=== PATIENT | male | born 1935 | race Caucasian/White ===

== ENCOUNTER 2017-04-04 10:20 | Emergency (ER) | payer OTHER, MEDICARE ==
[~2017-04-04] VITALS: Ht 172.7 cm; Wt 64.4 kg
--- NOTE | 2017-04-04 10:38 | ED PSYCHIATRIC COMPLAINT ---
History of Present Illness General Chief Complaint: Psychiatric Related Complaint Stated Complaint: SIB DR PORTILLO ACUTE ANXIETY/DEPRESSION Source: patient, family Exam Limitations: no limitations Allergies Coded Allergies: Penicillins (UPSET STOMACH 04/04/17) aspirin (UPSET STOMACH 04/04/17) Triage Note: PT TO ED WITH FAMILY FOR INCREASE IN DEPRESSION AND ANXIETY. SENT TO ED BY DR PORTILLO. PT STATES HE IS ON ANXIETY MEDS BUT THEY ARE NOT HELPING. C/O INSOMNIA AND POOR PO INTAKE. DENIES SI/HI. CALM COOPERATIVE. HAS HAD 10LB WEIGHT LOSS IN 3 MONTHS. Triage Nurses Notes Reviewed? yes Onset: Gradual Duration: getting worse Timing: recent history Severity: severe Severity Numbers: 7 HPI: Patient is a 81-year-old male with a past medical history of hyperlipidemia anxiety depression hypothyroidism, AFIB WITH ABLATION, CHRONIC BACK PAIN, who presents emergency room with concerns of worsening anxiety and depression where he states in the past 3 weeks he is worried about everything has had poor by mouth intake 3 months of 10 pound weight loss and generalized weakness and fatigue patient also is complaining of racing thoughts Patient is never a smoker His primary care doctor treats his anxiety depression with citalopram percent administration of alprazolam prescription and trazodone with no relief of symptoms. Patient denies any suicidal or homicidal ideation denies any illness currently denies any fever chills shortness breath chest pain or jaw pain change in bowel habits no blood no melena no night sweats Denies any auditory or visual hallucinations patient resides with his was present during the history and physical son is also present (Lauri Boothe) Vital Signs & Intake/Output Vital Signs & Intake/Output Vital Signs Date Time Temp Pulse Resp B/P B/P Pulse O2 O2 Flow FiO2 Mean Ox Delivery Rate 04/04 1250 96.6 76 18 125/75 97 Room Air 04/04 1024 96.0 82 20 117/77 96 Room Air (Laura YEE,Olaf Evans) Past History Travel History Traveled to [place] past 21 day No Medical History Any Pertinent Medical History? see below for history Cardiovascular: hyperlipidemia Psychiatric: anxiety Endocrine: hypothyroidism Surgical History Surgical History: non-contributory Psychosocial History Tobacco Use: Current Daily Use Daily Tobacco Use Amount/Type: => 5 Cigarettes daily ETOH Use: denies use Illicit Drug Use: denies illicit drug use Family History Hx Contributory? No (Lauri Boothe) Review of Systems Review of Systems Constitutional: Reports: no symptoms. EENTM: Reports: no symptoms. Respiratory: Reports: no symptoms. Cardiovascular: Reports: no symptoms. GI: Reports: no symptoms. Genitourinary: Reports: no symptoms. Musculoskeletal: Reports: no symptoms. Skin: Reports: no symptoms. Neurological/Psychological: Reports: see HPI. Hematologic/Endocrine: Reports: no symptoms. Immunologic/Allergic: Reports: no symptoms. All Other Systems: Reviewed and Negative (Lauri Boothe) Physical Exam Physical Exam General Appearance: no apparent distress, alert, thin Head: atraumatic Eyes: Bilateral: normal appearance. Ears, Nose, Throat: normal pharynx, normal ENT inspection Neck: normal inspection Respiratory: normal breath sounds, chest non-tender, no respiratory distress Cardiovascular: regular rate/rhythm Gastrointestinal: normal bowel sounds, soft, non-tender Neurological/Psychiatric: no motor/sensory deficits, awake, calm Appearance/Memory/Insight: appropriate appearance, appropriate insight, denies illness Behavoir/Eye Contact/Speech: cooperative Thoughts/Hallucinations: normal thought pattern, no apparent hallucination Skin: intact, normal color, warm/dry Cleared? (statement below) Yes SAD PERSONS Done? patient not suicidal (Lauri Boothe) Progress Differential Diagnosis: drug intoxication, drug overdose, drug withdrawal, electrolyte abnormality, encephalitis, hypoglycemia, hypothyroidism, IC hem/mass /tumor, meningitis Plan of Care: Orders Procedure Date/time Status Heart Healthy Diet 04/04 D Active EKG 04/04 1121 Active URINE DRUG SCREEN FOR ER ONLY 04/04 1111 Complete THYROID STIMULATING HORMONE 04/04 1111 Complete FREE T4 04/04 1111 Complete ETHANOL 04/04 1111 Complete COMPREHENSIVE METABOLIC PANEL 04/04 1111 Complete CBC WITHOUT DIFFERENTIAL 04/04 1111 Complete ED CRISIS PSYCH CONSULT 04/04 1111 Active Laboratory Tests 04/04/17 1125: Anion Gap 13, Estimated GFR > 60, BUN/Creatinine Ratio 35.0 H, Glucose 102 H, Calcium 9.4, Total Bilirubin 0.3, AST 33, ALT 48, Alkaline Phosphatase 54, Total Protein 6.7, Albumin 4.3, Globulin 2.4, Albumin/Globulin Ratio 1.8, TSH 0.311, Free T4 1.32, CBC w Diff NO MAN DIFF REQ, RBC 4.31 L, MCV 90.9, MCH 30.2, RDW 13.3, MPV 7.1 L, Gran % 73.9, Lymphocytes % 19.0 L, Monocytes % 6.0, Eosinophils % 0.6, Basophils % 0.5, Absolute Granulocytes 5.0, Absolute Lymphocytes 1.3, Absolute Monocytes 0.4, Absolute Eosinophils 0, Absolute Basophils 0, PUBS MCHC 33.2, Serum Alcohol < 10.0 04/04/17 1120: Urine Opiates Screen < 100.00, Methadone Screen < 40, Barbiturate Screen < 60, Ur Phencyclidine Scrn < 6.00, Amphetamines Screen < 100, U Benzodiazepines Scrn 312 H, Urine Cocaine Screen < 50, Urine Cannabis Screen < 5.00 Patient on initial examination was resting comfortably at bedside denies any illness however due to patient's advanced age and comorbidities blood work and chest x-ray and EKG will be established Plan with patient is to medically clear him have a psychiatric consultation for most likely outpatient establishment The patient on his blood work and chest x-ray and EKG patient has been medically cleared and currently crisis is pending evaluation Crisis management evaluated the patient and indicates to me that patient will follow up with outpatient [facility] psychiatric provider discussed disposition plan with Dr. Sanchez and patient who agrees has no questions. Olaf Sanchez MD AND crisis management also had a long extensive conversation with patient and family members and which they were displeased with the fact that the follow-up appointment with establishment is not for 8 days well we discussed that there is no life-threatening emergent concern for patient's chronic symptoms he is not a threat to himself or others medically patient was cleared and which we strongly advised patient to follow-up with this appointment and to return to emergency room if symptoms worsen. Diagnostic Imaging: Viewed by Me: Radiology Read. CXR Impression: no acute abnormality, no infiltrates Initial ED EKG: normal p-waves, normal QRS complex, normal sinus rhythm, 69 BPM, NSR Comments: PATIENT: ESME HANSON PRESENT AGE: 81 PATIENT ACCOUNT NO: [id number] : 37 LOCATION: [facility] ORDERING PHYSICIAN: Lauri MCBRIDE SERVICE DATE: 04/04/17-1110 EXAM TYPE: RAD - XRY-CHEST XRAY, TWO VIEWS EXAMINATION: XR CHEST CLINICAL INFORMATION: 81-year-old male patient with weight loss. Smoking history. COMPARISON: None TECHNIQUE: PA and lateral erect views of the chest. FINDINGS: The examination reveals symmetric hyperaeration of both lungs due to chronic lung disease. The patient has pectus carinatum which results in exaggeration of the retrosternal airspace. The heart is normal in size. Pulmonary vascularity is normal. There is no evidence of acute pulmonary parenchymal or pleural disease. The bony thorax is unremarkable. IMPRESSION: No acute pulmonary disease. DICTATED BY: Wyatt Sanchez MD DATE/TIME DICTATED:04/04/17 (Lauri Boothe) Departure Departure Disposition: HOME OR SELF CARE Condition: Stable Clinical Impression Primary Impression: Anxiety Secondary Impressions: Depression Referrals: Emmanuel Portillo MD (PCP/Family) Additional Instructions: As discussed please follow-up with your outpatient [facility] psychiatric provider appointment NEXT Saturday as you have an appointment, continue medications as directed. Begin eating WELL healthy balanced diet and plenty water for hydration and please discontinue smoking. IF symptoms worsen or IF YOU develop any new concerning symptom return to the emergency room Departure Forms: Customer Survey General Discharge Information (Lauri Boothe) PA/CHANNEL SPECIALIST Co-Sign Statement Statement: ED Attending supervision documentation- [X] I saw and evaluated the patient. I have also reviewed all the pertinent lab results and diagnostic results. I agree with the findings and the plan of care as documented in the PA's/CHANNEL SPECIALIST's documentation. [] I have reviewed the ED Record and agree with the PA's/CHANNEL SPECIALIST's documentation. [] Additions or exceptions (if any) to the PAs/CHANNEL SPECIALIST's note and plan are summarized below: [] (Laura YEE,Olaf Evans)
[2017-04-04 11:36] LABS: ABSOLUTE BASOPHIL COUNT 0 /CUMM (0.0-0.2); ABSOLUTE EOSINOPHIL COUNT 0 /CUMM (0.0-0.7); ABSOLUTE LYMPH COUNT 1.3 /CUMM (1.2-3.4); ABSOLUTE MONOCYTE COUNT 0.4 /CUMM (0.10-0.60); BASOPHIL % 0.5 % (0.0-2.0); EOSINOPHIL % 0.6 % (0-5); GRANULOCYTE % 73.9 % (42.2-75.2); HEMATOCRIT 39.2 % (42-52); MEAN CORPUSCULAR HGB 30.2 PG (27.0-31.0); MEAN CORPUSCULAR HGB CONC 33.2 G/DL (33.0-37.0); MEAN CORPUSCULAR VOLUME 90.9 FL (80.0-94.0); MEAN PLATELET VOLUME 7.1 FL (7.4-10.4); PLATELET COUNT 314 /CUMM (130-400); RBC DISTRIBUTION WIDTH 13.3 % (11.5-14.5); RED BLOOD CELL CT 4.31 /CUMM (4.70-6.10); WHITE BLOOD CELL COUNT 6.8 /CUMM (4.8-10.8)
--- NOTE | 2017-04-04 12:11 | RADIOLOGY REPORT ---
EXAMINATION: XR CHEST CLINICAL INFORMATION: 81-year-old male patient with weight loss. Smoking history. COMPARISON: None TECHNIQUE: PA and lateral erect views of the chest. FINDINGS: The examination reveals symmetric hyperaeration of both lungs due to chronic lung disease. The patient has pectus carinatum which results in exaggeration of the retrosternal airspace. The heart is normal in size. Pulmonary vascularity is normal. There is no evidence of acute pulmonary parenchymal or pleural disease. The bony thorax is unremarkable. IMPRESSION: No acute pulmonary disease.
[2017-04-04 12:50] VITALS: BP 125/75
--- NOTE | 2017-04-04 13:11 | ED PSYCH CRISIS CONSULTATION ---
Crisis Consult Basic Assessment Date of Consult: 04/04/17 Responsible Person/Accompanied By: family Insurance Authorization: Insurance #1: Insurance name: MEDICARE A Phone number: Policy number: [id number] Group number: Authorization number: ED Provider: Patient's ED Provider: Lauri Boothe Primary Care Physician: Patient's PCP: Emmanuel Portillo MD PCP's Chief Complaint: Psychiatric Related Complaint Patient's Quote: "everything is bothering me." Present Illness: Pt is 81 yo caucaisian male sent to ED by his PCP Dr. Portillo for worsening symptoms of depression and anxiety. Per pt he has been followed by Dr. Portillo for years. No SI/HI/AH/VH at present. His ETOH is 0 and UTOX is positive for benxodiazapines which he is prescribed. Pt is taking citalopram, alprazolam and trazadone with no relief , prescribed by PCP. He reports racing thoughts of worry about his house, not sleeping well and poor appetite. He attributes his anxiety due to worries about his , the house, his family, and "everything." Pt denies any recent changes/stressors the past 3 weeks. Per pt he lost 10 lbs over the past 3 weeks. He has hx of one inpatient hospitalization in 2005 for ingestion of pills and was hospitalized in [place]. NO substance abuse hx. Pt has no hx of formal psychiatric tx ie. individual therapy or counseling. No family hx of psych/substance abuse issues. Hx of working for [employer] and is now retired with pension. Pt has 3 adult children : 2 sons and a daughter. Per collateral ( face to face meeting with family, Josi and son Augustine): Pt is worried about everything, his , children , his brother who is sick and money. Per Augustine he is worried about real things but is becomming irrational about them ." he worries about things that should be a 1/10 but in his mind are 10/10." Per the and Augustine , they have no safety or risk concerns. Case consulted with Dr. Mo and recommends outpatient referral for psychiatric provider. This clinician gave patient referrals for OPS and list of 1:1 providers/resources. Patient's Address: [address] [place] [id number] Other Phone Number: Who Do You Live With? Significant Other Family/Informants Interviewed: Augustine- Son Josi- mother Allergies - Coded Allergies: Penicillins (UPSET STOMACH 04/04/17) aspirin (UPSET STOMACH 04/04/17) Laboratory Results: Laboratory Tests 04/04/17 1125: Anion Gap 13, Estimated GFR > 60, BUN/Creatinine Ratio 35.0 H, Glucose 102 H, Calcium 9.4, Total Bilirubin 0.3, AST 33, ALT 48, Alkaline Phosphatase 54, Total Protein 6.7, Albumin 4.3, Globulin 2.4, Albumin/Globulin Ratio 1.8, TSH 0.311, Free T4 1.32, CBC w Diff NO MAN DIFF REQ, RBC 4.31 L, MCV 90.9, MCH 30.2, RDW 13.3, MPV 7.1 L, Gran % 73.9, Lymphocytes % 19.0 L, Monocytes % 6.0, Eosinophils % 0.6, Basophils % 0.5, Absolute Granulocytes 5.0, Absolute Lymphocytes 1.3, Absolute Monocytes 0.4, Absolute Eosinophils 0, Absolute Basophils 0, PUBS MCHC 33.2, Serum Alcohol < 10.0 04/04/17 1120: Urine Opiates Screen < 100.00, Methadone Screen < 40, Barbiturate Screen < 60, Ur Phencyclidine Scrn < 6.00, Amphetamines Screen < 100, U Benzodiazepines Scrn 312 H, Urine Cocaine Screen < 50, Urine Cannabis Screen < 5.00 Past History Past Medical History Cardiovascular: hyperlipidemia Psychiatric: anxiety Endocrine: hypothyroidism Past Surgical History Surgical History: non-contributory Psychosocial History Strengths/Capabilities: Pt is seeking tx strong family supports Physical Limitations (Interventions): none stated Psychiatric Treatment History Psych Treatment Psychiatric Treatment Yes Inpatient Treatment Yes Outpatient Treatment No Location of Treatment [place] Reason for Treatment Major depression , ingestion of pills Dates of Treatment 2006 Response to Treatment fair Diagnosis by History: major depression Substance Use/Abuse History Drug Use/Abuse Substances Used/Abused No Substance Abuse Treatment Substance Abuse Treatment Past Substance Abuse [place] No Inpatient Treatment No Outpatient Treatment No Current Mental Status Mental Status Orientation: Person, Place, Situation Affect: Anxious, Depressed Speech: WNL Neuro-vegetative: Anhedonia, Appetite Decreased, Concentration Poor, Sleep Disturbance Appearance Appearance- Dress/Hygiene: Pt is dressed in blue hospital gown and hygiene is fair Behaviors Thought Process: WNL Thought Content: WNL Memory: WNL Insight: Fair SI/HI Risk Assessment Past Suicidal Ideation/Attempts Yes Current Suicidal Ideation/Att No Past Homicidal Ideation/Att: No Current Homicidal Ideation/Attempts No Degree of Intent: None Gravely Disabled: Lack of Insight Risk Factors: age (under 24/over 65), high anxiety/distress, history of suicide atmpts, SA/MH hospitalized, male Lethality Ratin (mild) PTSD Checklist PTSD Done? pt unable to participate ED Management Sitter: Yes Restraints: No DSM5/PS Stressors/Medical Prob Diagnosis' (DSM 5, Stressors, Medical): F32.9 Major depression, single episode, unspecified F41.9 Anxiety unspecified medical:hyperlipidemia, hypothyroidism, AFIB WITH ABLATION, CHRONIC BACK PAIN pscyhosocial stressors: housing, family, financial Current GAF: 44 Departure Disposition Psych Medical Clearance Date: 04/04/17 Medically Cleared at: 1230 Time Started: 1230 Time Ended: 1315 Psychiatrist Consulted: Dr. Mo Date Disposition Established: 04/04/17 Time Disposition Established: 1315 Plan for Disposition - Modality: Outpatient Facility: [facility] Follow-up Appt Date: 04/12/17 Follow-Up Appt Time: 0930 Rationale for Disposition: Pt presents to ED with worsening depression and anxiety- no SI/HI/AH/VH at present. Case consulted with Dr. Mo and recommends outpatient referral for psychiatric provider. This clinician gave patient referrals for OPS and list of 1:1 providers/resources. Referrals Portillo Emmanuel YEE (PCP/Family)
== END 2017-04-04 14:05 ==
LOC: ERH 10:20
PROVIDERS: Physician Assistant
DX: F41.9 Anxiety disorder, unspecified (principal); F32.9 Major depressive disorder, single episode, unspecified; R53.1 Weakness; E03.9 Hypothyroidism, unspecified
CPT/HCPCS: 71046; 80307; 93005; 93010; G0463; G0480